=== PATIENT | male | born 1990 | race African-American/Black ===

== ENCOUNTER 2018-03-20 15:48 | Emergency (ER) | payer BC, OTHER ==
[~2018-03-20] VITALS: Ht 193 cm; Wt 74.4 kg
--- NOTE | 2018-03-20 16:10 | NUR ---
27 years old male presents to er by ambulance c/o anxiety after walking out of rehab today, patient alert, verbally responsive on the phone constantly with his mom request to go to [facility] for psych treatment.
[2018-03-20] MEDS ORDERED: QUET200T PO (16:19)
[2018-03-20] MEDS ORDERED: OLAN5TAB3 PO (16:19)
[2018-03-20 16:35] LABS: BASOPHILS # (AUTO) 0.1 K/uL (0.0-8.0); BASOPHILS % (AUTO) 1.1 % (0.0-2.0); EOSINOPHILS # (AUTO) 0.1 K/uL (0.0-0.7); EOSINOPHILS % (AUTO) 1.5 % (0.0-7.0); HEMATOCRIT 38.6 % (36.7-47.1); HEMOGLOBIN 13.1 g/dL (12.5-16.3); LYMPHOCYTES # (AUTO) 1.6 K/uL (20.0-40.0); LYMPHOCYTES % (AUTO) 25.4 % (20.5-51.5); MEAN CORPUSCULAR HEMOGLOBIN 30.2 uug (23.8-33.4); MEAN CORPUSCULAR HGB CONC 34 g/dL (32.5-36.3); MEAN CORPUSCULAR VOLUME 88.7 fL (73.0-96.2); MONOCYTES # (AUTO) 0.7 K/uL (2.0-10.0); MONOCYTES % (AUTO) 10.3 % (0.0-11.0); NEUTROPHILS % (AUTO) 61.7 % (38.5-71.5); PLATELET COUNT (AUTO) 323 K/uL (152-348); RED BLOOD CELL COUNT(AUTO) 4.35 MIL/uL (4.06-5.63); WHITE BLOOD COUNT (AUTO) 6.5 K/uL (3.6-10.2)
[2018-03-20 16:36] LABS: *BILIRUBIN,URIN NEGATIVE (NEGATIVE); *BLOOD, URINE NEGATIVE (NEGATIVE); *CLARITY,URINE CLEAR (CLEAR); *COLOR,URINE YELLOW (YELLOW); *KETONES,URINE NEGATIVE (NEGATIVE); *UROBILINOGEN,URINE 0.2 E.U./dl (NORMAL); LEUKOCYTE ESTERASE ,URINE NEGATIVE (NEGATIVE); NITRITE, URINE NEGATIVE (NEGATIVE); PH,URINE 5.5 (5.0-8.0); UGLUCOSE NEGATIVE (NEGATIVE)
[2018-03-20 16:44] LABS: MUCUS,URINE MODERATE /LPF (0-FEW); RBC,URINE 0-3 /HPF (0-3)
[2018-03-20 16:45] LABS: CARBON DIOXIDE 27 mmol/L (21-32); CHLORIDE 105 mmol/L (98-107); CREATININE 1.1 mg/dL (0.6-1.3); GLUCOSE 93 mg/dL (74-106); UREA NITROGEN, BLOOD 17 mg/dL (7-18)
[2018-03-20] MEDS ORDERED: QUETIAPINE FUMARATE 25 MG TABLET PO ONE (16:45)
[2018-03-20] MEDS ORDERED: diphenhydrAMINE 50 MG CAPSULE PO ONE (16:45)
[2018-03-20 16:49] LABS: ALANINE AMINOTRANSFERASE 30 U/L (16-63); ALKALINE PHOSPHATASE 87 U/L (50-136); ASPARTATE AMINOTRANSFERASE 44 U/L (15-37); BILIRUBIN,DIRECT 0.1 mg/dL (0.0-0.2); BILIRUBIN,TOTAL 0.2 mg/dL (0.2-1.0); TOTAL PROTEIN, SERUM 8.2 g/dL (6.4-8.2)
[2018-03-20] MEDS ORDERED: QUETIAPINE FUMARATE 200 MG TABLET ONE (16:49)
[2018-03-20] MEDS ORDERED: diphenhydrAMINE 50 MG CAPSULE ONE (16:50)
[2018-03-20 16:55] LABS: ACETAMINOPHEN < 2.0 ug/mL (10-30); ETHANOL < 3 MG/DL (0-0)
[2018-03-20 16:59] LABS: *AMPHETAMINE, URINE NEGATIVE (NEGATIVE); *BARBITURATE, URINE NEGATIVE (NEGATIVE); *CANNABINOID, URINE NEGATIVE (NEGATIVE); *COCCAINE, URINE NEGATIVE (NEGATIVE); *OPIATE, URINE NEGATIVE (NEGATIVE); *PHENCYCLIDINE SCREEN,URINE NEGATIVE (NEGATIVE)
--- NOTE | 2018-03-20 17:07 | NUR ---
talked to Radha she will visit patient in 1 hour.
--- NOTE | 2018-03-20 17:42 | NUR ---
patient awake food tray given awaitign for PET evaluation.
--- NOTE | 2018-03-20 19:00 | NUR ---
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
--- NOTE | 2018-03-20 19:38 | NUR ---
Patient discharged to home in stable conditon. Written and verbal after care instructions given. Patient verbalizes understanding of instructions. Patient ambulated out of ER with steady gait, no acute signs of distress, VSS, all belongings taken, patient provided with taxi voucher.
[2018-03-20 19:39] VITALS: BP 152/88
== END 2018-03-20 19:39 | disposition home or self-care (01) ==
LOC: ER 15:50
DX: F32.9 Major depressive disorder, single episode, unspecified (principal); F20.9 Schizophrenia, unspecified; Z88.8 Allergy status to other drugs, medicaments and biological substances; Z79.899 Other long term (current) drug therapy
CPT/HCPCS: 36415; 71045; 80048; 80076; 80307; 81001; 85025; 93005; 99284; G0480 ×2; G0481; Q0163; A4663